=== PATIENT | female | born 1970 | race Caucasian/White ===

== ENCOUNTER 2017-09-13 21:10 | Emergency (ER) | payer BC ==
[2017-09-13] MEDS ORDERED: Famotidine 20 MG TAB ONE (21:57)
[2017-09-13] MEDS ORDERED: diphenhydrAMINE 25 MG CAP ONE (21:57)
[2017-09-13] MEDS ORDERED: Dexamethasone 4 mg/ml Vial ONE (21:57)
== END 2017-09-14 00:44 | disposition home or self-care (01) ==
LOC: ERS 21:10
DX: T78.40XA Allergy, unspecified, initial encounter (principal); I25.10 Atherosclerotic heart disease of native coronary artery without angina pectoris
CPT/HCPCS: 96372; J1100

== ENCOUNTER 2017-09-14 20:34 | Emergency (ER) | payer BC ==
[2017-09-14] MEDS ORDERED: methylPREDNISolone Sod Succ/PF 125 MG/2 ML VIAL ONE (21:09)
[2017-09-14] MEDS ORDERED: EPINEPHrine 1 MG/ML AMP ONE (21:09)
[2017-09-14] MEDS ORDERED: diphenhydrAMINE 50 MG/ML VIAL ONE (21:09)
[2017-09-14] MEDS ORDERED: Famotidine 20 MG TAB ONE (21:18)
== END 2017-09-14 22:42 | disposition home or self-care (01) ==
LOC: ERS 20:34
DX: L50.0 Allergic urticaria (principal); I25.10 Atherosclerotic heart disease of native coronary artery without angina pectoris; Z79.82 Long term (current) use of aspirin
CPT/HCPCS: 96361; 96374; 96375; J0171; J1200; J2930